=== PATIENT | male | born 1960 | race Caucasian/White ===

== ENCOUNTER → 2022-11-26 | Day surgery (SDC) | payer MEDICARE ==
[~2022-11-26] MED LIST: BUPIVACAINE HCL 0.5% INJ 30 ML VIAL INJ ONE; CEFTRIAXONE 1 GM VIAL ONE; DEXAMETHASONE SOD PHOS INJ 4 MG/ML SDV ONE; EPHEDRINE SULFATE INJ 50 MG/ML VIAL ONE; FENTANYL CITRATE/PF 100MCG/2 ML INJ ONE; GENTAMICIN 80MG/NS 100 ML 200 ML IV ONE; HYDROCODON-ACE1 EA12 PO; IOPAMIDOL 610MG/1ML 300 MG/ML VIAL IV ONE; LACTATED RINGER'S 1,000 ML ONE; LIDOCAINE 2% /EPINEPHRINE 20 ML SDV INJ ONE; LIDOCAINE HCL 2% LOCAL INJ 5 ML SDV VIAL INJ ONE; MIDAZOLAM HCL 2 MG/2 ML VIAL ONE; ONDANSETRON HCL INJ 2MG/ML 2ML 2 MG/ML VIAL ONE; PHENYLEPHRINE HCL 1% 10 MG/ML VIAL ONE; POVIDONE IODINE 0.05% 0.05 % ML PO ONE; PROPOFOL IV EMULSION 10 MG/ML 20 ML VIAL ONE; SEVOFLURANE INHAL SOLN 250 ML PEN BTL ONE; TESTOSTERONE IM; VIAGRA25 MG PO
[2022-11-26 07:07] LABS: BASOPHILS # (AUTO) 0.1 (0.0-0.1); BASOPHILS % 0.8 % (0.0-1.0); EOSINOPHILS # (AUTO) 0.4 (0.0-0.4); EOSINOPHILS % 4.7 % (0.0-6.0); HEMATOCRIT 35.4 % (38.2-49.6); HEMOGLOBIN 11.5 g/dL (14.0-18.0); LYMPHOCYTES # (AUTO) 1.6 (1.0-3.2); LYMPHOCYTES % 18.2 % (18.0-39.1); MEAN CORPUSCULAR HEMOGLOBIN 27.6 pg (28-32); MEAN CORPUSCULAR HGB CONC 32.5 g/dL (31-35); MEAN CORPUSCULAR VOLUME 85.1 fL (81-99); MONOCYTES # (AUTO) 0.7 (0.2-0.8); MONOCYTES % 8.4 % (4.4-11.3); NEUTROPHILS # (AUTO) 5.9 (2.1-6.9); NEUTROPHILS % 67.6 % (38.7-80.0); PLATELET COUNT 618 x10e3/uL (140-360); RED BLOOD COUNT 4.16 x10e6/uL (4.3-5.7); RED CELL DISTRIBUTION WIDTH 16.9 % (11.7-14.4); WHITE BLOOD COUNT 8.74 x10e3/uL (4.8-10.8)
[2022-11-26 07:27] LABS: ANION GAP 14.1 mmol/L (8-16); CALCIUM 9.1 mg/dL (8.4-10.2); CREATININE, SERUM 0.67 mg/dL (0.72-1.25); POTASSIUM 4.1 mmol/L (3.5-5.1)
[2022-11-26 11:00] VITALS: BP 144/82; PULSE 81; RESP 17; O2SAT 97
== END | disposition home or self-care (01) ==
LOC: OR 06:14
PROVIDERS: ATTEND Urology
DX: N39.0 Urinary tract infection, site not specified (principal); R33.9 Retention of urine, unspecified; N35.912 Unspecified bulbous urethral stricture, male; N40.0 Benign prostatic hyperplasia without lower urinary tract symptoms; Q54.8 Other hypospadias; N31.9 Neuromuscular dysfunction of bladder, unspecified; N32.89 Other specified disorders of bladder; G82.20 Paraplegia, unspecified; M19.90 Unspecified osteoarthritis, unspecified site; M41.9 Scoliosis, unspecified
CPT/HCPCS: 36415; 51040; 52281; 74420; 80048; 85025; 87086; 87186; 93005; C1758; C1769; J0696; J1100; J1580; J2001 ×2; J2250; J2371; J2405; J2704; J3010; J7121; Q9967